=== PATIENT | female | born 1935 | race Two or more races ===

== ENCOUNTER 2021-01-11 14:22 | Emergency (ER) | payer OTHER ==
[~2021-01-11] VITALS: Ht 144.8 cm; Wt 63.5 kg
[2021-01-11 14:23] VITALS: BP 146/66
[2021-01-11] MEDS ORDERED: ACETAMINOPHEN 325 MG TAB PO ONE (16:00)
== END 2021-01-11 16:28 | disposition home or self-care (01) ==
LOC: ER 14:22
DX: S92.515A Nondisplaced fracture of proximal phalanx of left lesser toe(s), initial encounter for closed fracture (principal); S80.12XA Contusion of left lower leg, initial encounter; X50.1XXA Overexertion from prolonged static or awkward postures, initial encounter; Y93.89 Activity, other specified; Y92.89 Other specified places as the place of occurrence of the external cause; Y99.8 Other external cause status
CPT/HCPCS: 73590; 73630

== ENCOUNTER 2021-05-24 11:16 | Inpatient (IN) | payer OTHER, MEDICAID ==
[~2021-05-24] VITALS: Ht 160 cm; Wt 82.7 kg
[2021-05-24] MEDS ORDERED: ASPirin 81 mg TAB PO ONE (13:00)
[2021-05-24] MEDS ORDERED: ACETAMINOPHEN 325 MG TAB PO ONE (13:00)
[2021-05-24] MEDS ORDERED: ONDANSETRON HCL 4 MG/2 ML VIAL IV ONE (13:00)
[2021-05-24] MEDS ORDERED: SODIUM CHLORIDE 0.9% 1,000 ML IVB ONE (13:00)
[2021-05-24] MEDS ORDERED: FAMOTIDINE (10MG/ML) 2ML VL IV ONE (13:00)
[2021-05-24 13:19] LABS: Basophils # (auto) 0 10 ^3/uL (0-0.2); Basophils % (auto) 0.3 % (0.0-2.0); Eosinophils # (auto) 0.1 10 ^3/uL (0-0.8); Eosinophils % (auto) 1.1 % (0.0-7.0); Hematocrit 41.1 % (36.0-46.0); Hemoglobin 13.5 g/dL (12.2-16.2); Lymphocytes # (auto) 2.5 10 ^3/uL (0.4-5.4); Lymphocytes % (auto) 43.4 % (10.0-50.0); Mean Corpuscular Hemoglobin 27.9 pg (28.0-32.0); Mean Corpuscular Hgb Conc. 32.9 g/dL (32.0-36.0); Mean Corpuscular Volume 84.9 fL (80.0-100.0); Monocytes # (auto) 0.4 10 ^3/uL (0-1.3); Monocytes % (auto) 7.2 % (0.0-12.0); Neutrophils # (auto) 2.8 10 ^3/uL (1.6-8.6); Nucleated Red Blood Cells % 0.1 %; Red Blood Cells 4.84 10^6/uL (4.0-5.20); Red Cell Distribution Width 15.5 % (11.8-14.3); White Blood Cell 5.8 10^3/uL (4.4-10.8)
[2021-05-24 14:21] LABS: Urine Amorphous Crystal FEW /hpf (None Seen); Urine Bacteria FEW /hpf (None Seen); Urine Blood 1+ /uL (Negative); Urine Mucus FEW (None Seen); Urine Specific Gravity 1.011 (1.001-1.035); Urine WBC 6 /hpf (0 - 5)
[2021-05-24] MEDS ORDERED: cefTRIAXone 1GM/50ML D5W 50 ML IV ONE (15:15)
[2021-05-24 15:44] LABS: Albumin 3.5 g/dL (3.4-5.0); Magnesium 1.9 mg/dL (1.6-2.6); Potassium 4.1 mmol/L (3.5-5.1)
[2021-05-24 15:48] LABS: BUN/Creatinine Ratio 15.4; Bilirubin, Total 0.3 mg/dL (0.2-1.0); Total Protein 7.3 g/dL (6.4-8.2)
[2021-05-24] MEDS ORDERED: ALBUTEROL SULF 2.5 MG/0.5ML(0.5%) NEB SOLN NEB PRN (22:30)
[2021-05-24] MEDS ORDERED: ACETAMINOPHEN 325 MG TAB PO PRN (22:30)
[2021-05-24] MEDS ORDERED: TEMAZEPAM 15 MG CAP PO PRN (22:30)
[2021-05-24] MEDS ORDERED: DEXTROSE (50%) 50ML SYRG IV PRN (22:30)
[2021-05-24] MEDS ORDERED: NITROGLYCERIN 0.4 MG SL TAB SL PRN (22:30)
[2021-05-24] MEDS ORDERED: MORPHINE SULFATE INJECTION 2 MG/ML SYRG IV PRN (22:30)
[2021-05-24] MEDS ORDERED: ONDANSETRON HCL 4 MG/2 ML VIAL IV PRN (22:30)
[2021-05-24 22:32] VITALS: BP 104/45
[2021-05-25 04:36] LABS: Basophils # (auto) 0 10 ^3/uL (0-0.2); Basophils % (auto) 0.4 % (0.0-2.0); Eosinophils # (auto) 0 10 ^3/uL (0-0.8); Eosinophils % (auto) 0.8 % (0.0-7.0); Hematocrit 38.9 % (36.0-46.0); Hemoglobin 12.7 g/dL (12.2-16.2); Lymphocytes # (auto) 2.3 10 ^3/uL (0.4-5.4); Lymphocytes % (auto) 41.5 % (10.0-50.0); Mean Corpuscular Hemoglobin 28.2 pg (28.0-32.0); Mean Corpuscular Hgb Conc. 32.7 g/dL (32.0-36.0); Mean Corpuscular Volume 86.2 fL (80.0-100.0); Monocytes # (auto) 0.4 10 ^3/uL (0-1.3); Monocytes % (auto) 7.3 % (0.0-12.0); Neutrophils # (auto) 2.8 10 ^3/uL (1.6-8.6); Nucleated Red Blood Cells % 0.1 %; Red Blood Cells 4.51 10^6/uL (4.0-5.20); Red Cell Distribution Width 15.7 % (11.8-14.3); White Blood Cell 5.6 10^3/uL (4.4-10.8)
[2021-05-25 05:02] LABS: Calcium 8.4 mg/dL (8.5-10.1); Potassium 4.1 mmol/L (3.5-5.1)
[2021-05-25 05:05] LABS: BUN/Creatinine Ratio 16.1
[2021-05-25 05:07] LABS: Bilirubin, Total 0.2 mg/dL (0.2-1.0); Total Protein 6.5 g/dL (6.4-8.2)
[2021-05-25] MEDS: InsuLIN REG 1unit/0.01ml Soln (100units/ml) SC SCH ×4 (07:00→21:37)
[2021-05-25] MEDS: ACCU-CHEK COMFORT CURVE STRIP VI SCH ×4 (07:09→21:36)
[2021-05-25] MEDS: LEVOTHYROXINE SODIUM 100 MCG TAB PO SCH (07:20)
[2021-05-25 09:00] VITALS: BP 111/57
[2021-05-25 09:19] LABS: Cholesterol 194 mg/dL (< 200); Triglycerides 217 mg/dL (< 150)
[2021-05-25 09:21] LABS: HDL Cholesterol 38 mg/dL (40-59); LDL Cholesterol 123 mg/dL (< 100)
[2021-05-25 10:22] VITALS: BP 115/65
[2021-05-25] MEDS ORDERED: ASCORBIC ACID 500 MG TAB PO ONE (10:30)
[2021-05-25] MEDS ORDERED: CHOLECALCIFEROL (VITD3) 2,000 UNIT CAP/TAB PO ONE (10:30)
[2021-05-25] MEDS ORDERED: ZINC SULFATE 220mg CAP or TAB PO ONE (10:30)
[2021-05-25] MEDS ORDERED: DexAMETHasone 4 MG TAB PO ONE (10:30)
[2021-05-25] MEDS: cefTRIAXone 1GM/50ML D5W 50 ML IV SCH (10:51)
[2021-05-25] MEDS: ASPirin 81 mg TAB PO SCH (10:51)
[2021-05-25] MEDS: PANTOPRAZOLE 40 MG TAB PO SCH (10:53)
[2021-05-25] MEDS: CARVEDILOL 3.125 MG TAB PO SCH ×2 (10:53→21:36)
[2021-05-25 12:09] VITALS: BP 104/43
[2021-05-25] MEDS ORDERED: REMDESIVIR PER PHARMACY 0 ML IV SCH (13:30)
[2021-05-25] MEDS: AZITHROMYCIN 500MG/ 250ML 250 ML IV SCH (13:45)
[2021-05-25] MEDS ORDERED: REMDESIVIR 200 MG in NS 210ml LOADING DOSE ADULT IV ONE (15:00)
[2021-05-25 16:50] VITALS: BP 97/58
[2021-05-25] MEDS ORDERED: HYDROcodone-ACET 5/325MG TAB PO PRN (17:45)
[2021-05-25] MEDS: ENOXAPARIN SOD 40 MG/0.4 ML SYRINGE SC SCH (21:35)
[2021-05-25] MEDS: ATORVASTATIN 20 MG TAB PO SCH (21:36)
[2021-05-25] MEDS: ASCORBIC ACID 500 MG TAB PO SCH (21:36)
[2021-05-25 22:29] VITALS: BP 123/43
[2021-05-26 05:00] VITALS: BP 100/46
[2021-05-26 06:42] LABS: Potassium 4.3 mmol/L (3.5-5.1)
[2021-05-26] MEDS: InsuLIN REG 1unit/0.01ml Soln (100units/ml) SC SCH ×4 (06:42→21:40)
[2021-05-26] MEDS: LEVOTHYROXINE SODIUM 100 MCG TAB PO SCH (06:42)
[2021-05-26] MEDS: ACCU-CHEK COMFORT CURVE STRIP VI SCH ×4 (06:43→21:27)
[2021-05-26 06:45] LABS: Bilirubin, Total 0.2 mg/dL (0.2-1.0); Total Protein 6.5 g/dL (6.4-8.2)
[2021-05-26 07:02] LABS: Basophils # (auto) 0 10 ^3/uL (0-0.2); Basophils % (auto) 0.6 % (0.0-2.0); Eosinophils # (auto) 0 10 ^3/uL (0-0.8); Hematocrit 39.5 % (36.0-46.0); Hemoglobin 12.8 g/dL (12.2-16.2); Lymphocytes % (auto) 36.6 % (10.0-50.0); Mean Corpuscular Hgb Conc. 32.4 g/dL (32.0-36.0); Mean Corpuscular Volume 86.4 fL (80.0-100.0); Monocytes # (auto) 0.4 10 ^3/uL (0-1.3); Monocytes % (auto) 6.7 % (0.0-12.0); Neutrophils # (auto) 3.1 10 ^3/uL (1.6-8.6); Neutrophils % (auto) 56.1 % (37.0-80.0); Nucleated Red Blood Cells % 0.1 %; Red Blood Cells 4.57 10^6/uL (4.0-5.20); Red Cell Distribution Width 15.7 % (11.8-14.3); White Blood Cell 5.4 10^3/uL (4.4-10.8)
[2021-05-26 09:00] VITALS: BP 108/55
[2021-05-26] MEDS: ENOXAPARIN SOD 40 MG/0.4 ML SYRINGE SC SCH ×3 (09:08→21:46)
[2021-05-26] MEDS: cefTRIAXone 1GM/50ML D5W 50 ML IV SCH (09:08)
[2021-05-26] MEDS: AZITHROMYCIN 500MG/ 250ML 250 ML IV SCH (09:08)
[2021-05-26] MEDS: CARVEDILOL 3.125 MG TAB PO SCH ×2 (09:09→21:41)
[2021-05-26] MEDS: CHOLECALCIFEROL (VITD3) 2,000 UNIT CAP/TAB PO SCH (09:09)
[2021-05-26] MEDS: ASPirin 81 mg TAB PO SCH (09:10)
[2021-05-26] MEDS: DexAMETHasone 4 MG TAB PO SCH (09:10)
[2021-05-26] MEDS: ZINC SULFATE 220mg CAP or TAB PO SCH (09:10)
[2021-05-26] MEDS: PANTOPRAZOLE 40 MG TAB PO SCH (09:10)
[2021-05-26] MEDS: ASCORBIC ACID 500 MG TAB PO SCH ×2 (09:11→21:27)
[2021-05-26 13:00] VITALS: BP 108/51
[2021-05-26] MEDS: REMDESIVIR 100mg 100 MG in SODIUM CHL 0.9% 230 ML IV SCH (15:52)
[2021-05-26 17:00] VITALS: BP 106/51
[2021-05-26] MEDS: ATORVASTATIN 20 MG TAB PO SCH (21:27)
[2021-05-26 22:00] VITALS: BP 99/75
[2021-05-27] VITALS (7 sets, daily range): BP systolic 91–138; BP diastolic 41–69
[2021-05-27] MEDS: InsuLIN REG 1unit/0.01ml Soln (100units/ml) SC SCH ×4 (06:16→22:00)
[2021-05-27] MEDS: ACCU-CHEK COMFORT CURVE STRIP VI SCH ×4 (06:17→22:31)
[2021-05-27] MEDS: LEVOTHYROXINE SODIUM 100 MCG TAB PO SCH (06:27)
[2021-05-27 06:52] LABS: Potassium 4.3 mmol/L (3.5-5.1)
[2021-05-27 06:57] LABS: BUN/Creatinine Ratio 18.1; Bilirubin, Total 0.2 mg/dL (0.2-1.0); Total Protein 6.5 g/dL (6.4-8.2)
[2021-05-27] MEDS: ASPirin 81 mg TAB PO SCH (08:35)
[2021-05-27] MEDS: cefTRIAXone 1GM/50ML D5W 50 ML IV SCH (08:35)
[2021-05-27] MEDS: AZITHROMYCIN 500MG/ 250ML 250 ML IV SCH (08:35)
[2021-05-27] MEDS: ZINC SULFATE 220mg CAP or TAB PO SCH (08:36)
[2021-05-27] MEDS: CARVEDILOL 3.125 MG TAB PO SCH (08:38)
[2021-05-27] MEDS: DexAMETHasone 4 MG TAB PO SCH (08:44)
[2021-05-27] MEDS: ASCORBIC ACID 500 MG TAB PO SCH ×2 (08:46→22:30)
[2021-05-27] MEDS: PANTOPRAZOLE 40 MG TAB PO SCH (08:46)
[2021-05-27] MEDS: CHOLECALCIFEROL (VITD3) 2,000 UNIT CAP/TAB PO SCH (08:46)
[2021-05-27] MEDS: ENOXAPARIN SOD 40 MG/0.4 ML SYRINGE SC SCH ×2 (08:47→22:31)
[2021-05-27] MEDS: REMDESIVIR 100mg 100 MG in SODIUM CHL 0.9% 230 ML IV SCH (15:10)
[2021-05-27] MEDS: ATORVASTATIN 20 MG TAB PO SCH (22:30)
[2021-05-28 05:00] VITALS: BP 126/58
[2021-05-28] MEDS: LEVOTHYROXINE SODIUM 100 MCG TAB PO SCH (06:12)
[2021-05-28] MEDS: InsuLIN REG 1unit/0.01ml Soln (100units/ml) SC SCH ×4 (06:12→21:44)
[2021-05-28] MEDS: ACCU-CHEK COMFORT CURVE STRIP VI SCH ×4 (06:12→21:44)
[2021-05-28 07:41] LABS: Calcium 8.2 mg/dL (8.5-10.1); Potassium 4.2 mmol/L (3.5-5.1)
[2021-05-28 07:44] LABS: BUN/Creatinine Ratio 22.3; Bilirubin, Total 0.2 mg/dL (0.2-1.0); Total Protein 6.5 g/dL (6.4-8.2)
[2021-05-28 07:47] VITALS: BP 108/48
[2021-05-28 08:09] LABS: Basophils # (auto) 0 10 ^3/uL (0-0.2); Basophils % (auto) 0.1 % (0.0-2.0); Eosinophils # (auto) 0 10 ^3/uL (0-0.8); Hemoglobin 12.4 g/dL (12.2-16.2); Lymphocytes # (auto) 1.6 10 ^3/uL (0.4-5.4); Lymphocytes % (auto) 25.8 % (10.0-50.0); Mean Corpuscular Hemoglobin 28.5 pg (28.0-32.0); Mean Corpuscular Hgb Conc. 33.3 g/dL (32.0-36.0); Mean Corpuscular Volume 85.4 fL (80.0-100.0); Monocytes # (auto) 0.6 10 ^3/uL (0-1.3); Monocytes % (auto) 9.1 % (0.0-12.0); Nucleated Red Blood Cells % 0.1 %; Red Blood Cells 4.34 10^6/uL (4.0-5.20); Red Cell Distribution Width 15.9 % (11.8-14.3); White Blood Cell 6.1 10^3/uL (4.4-10.8)
[2021-05-28 09:00] VITALS: BP 124/68
[2021-05-28] MEDS: ASPirin 81 mg TAB PO SCH (09:28)
[2021-05-28] MEDS: cefTRIAXone 1GM/50ML D5W 50 ML IV SCH (09:28)
[2021-05-28] MEDS: DexAMETHasone 4 MG TAB PO SCH (09:29)
[2021-05-28] MEDS: ASCORBIC ACID 500 MG TAB PO SCH ×2 (09:29→21:44)
[2021-05-28] MEDS: ZINC SULFATE 220mg CAP or TAB PO SCH (09:29)
[2021-05-28] MEDS: PANTOPRAZOLE 40 MG TAB PO SCH (09:29)
[2021-05-28] MEDS: CHOLECALCIFEROL (VITD3) 2,000 UNIT CAP/TAB PO SCH (09:29)
[2021-05-28] MEDS: ENOXAPARIN SOD 40 MG/0.4 ML SYRINGE SC SCH ×2 (09:30→21:44)
[2021-05-28] MEDS: AZITHROMYCIN 500MG/ 250ML 250 ML IV SCH (10:00)
[2021-05-28 13:00] VITALS: BP 108/48
[2021-05-28] MEDS: REMDESIVIR 100mg 100 MG in SODIUM CHL 0.9% 230 ML IV SCH (14:32)
[2021-05-28] MEDS ORDERED: LACTULOSE 20Gm/30ML SOLN PO ONE (16:30)
[2021-05-28 17:15] VITALS: BP 132/63
[2021-05-28] MEDS: ATORVASTATIN 20 MG TAB PO SCH (21:44)
[2021-05-28 22:00] VITALS: BP 114/79
[2021-05-29 05:13] VITALS: BP 107/52
[2021-05-29] MEDS: ACCU-CHEK COMFORT CURVE STRIP VI SCH ×4 (06:03→21:17)
[2021-05-29] MEDS: LEVOTHYROXINE SODIUM 100 MCG TAB PO SCH (06:03)
[2021-05-29] MEDS: InsuLIN REG 1unit/0.01ml Soln (100units/ml) SC SCH ×4 (06:15→21:17)
[2021-05-29 07:05] LABS: Albumin 3.1 g/dL (3.4-5.0); Potassium 4.1 mmol/L (3.5-5.1)
[2021-05-29 07:09] LABS: BUN/Creatinine Ratio 21.2; Bilirubin, Total 0.2 mg/dL (0.2-1.0); Calcium 8.3 mg/dL (8.5-10.1); Total Protein 6.8 g/dL (6.4-8.2)
[2021-05-29 09:00] VITALS: BP 126/56
[2021-05-29] MEDS: cefTRIAXone 1GM/50ML D5W 50 ML IV SCH (09:35)
[2021-05-29] MEDS: ASPirin 81 mg TAB PO SCH (09:35)
[2021-05-29] MEDS: AZITHROMYCIN 500MG/ 250ML 250 ML IV SCH (09:35)
[2021-05-29] MEDS: DexAMETHasone 4 MG TAB PO SCH (09:36)
[2021-05-29] MEDS: ASCORBIC ACID 500 MG TAB PO SCH ×2 (09:36→21:16)
[2021-05-29] MEDS: CHOLECALCIFEROL (VITD3) 2,000 UNIT CAP/TAB PO SCH (09:36)
[2021-05-29] MEDS: ZINC SULFATE 220mg CAP or TAB PO SCH (09:36)
[2021-05-29] MEDS: PANTOPRAZOLE 40 MG TAB PO SCH (09:36)
[2021-05-29] MEDS: ENOXAPARIN SOD 40 MG/0.4 ML SYRINGE SC SCH ×2 (09:37→21:16)
[2021-05-29 14:28] VITALS: BP 110/61
[2021-05-29] MEDS: REMDESIVIR 100mg 100 MG in SODIUM CHL 0.9% 230 ML IV SCH (15:03)
[2021-05-29] MEDS ORDERED: LACTULOSE 20Gm/30ML SOLN PO PRN (16:30)
[2021-05-29 17:00] VITALS: BP 106/44
[2021-05-29] MEDS: ATORVASTATIN 20 MG TAB PO SCH (21:15)
[2021-05-29 22:00] VITALS: BP 123/71
[2021-05-30 05:00] VITALS: BP 104/55
[2021-05-30] MEDS: LEVOTHYROXINE SODIUM 100 MCG TAB PO SCH (06:39)
[2021-05-30] MEDS: InsuLIN REG 1unit/0.01ml Soln (100units/ml) SC SCH (06:40)
[2021-05-30] MEDS: ACCU-CHEK COMFORT CURVE STRIP VI SCH (06:40)
[2021-05-30 09:00] VITALS: BP 121/68
[2021-05-30] MEDS: cefTRIAXone 1GM/50ML D5W 50 ML IV SCH (09:00)
[2021-05-30] MEDS: ZINC SULFATE 220mg CAP or TAB PO SCH (10:30)
[2021-05-30] MEDS: ASPirin 81 mg TAB PO SCH (10:31)
[2021-05-30] MEDS: DexAMETHasone 4 MG TAB PO SCH (10:31)
[2021-05-30] MEDS: AZITHROMYCIN 500MG/ 250ML 250 ML IV SCH (10:31)
[2021-05-30] MEDS: ASCORBIC ACID 500 MG TAB PO SCH (10:31)
[2021-05-30] MEDS: CHOLECALCIFEROL (VITD3) 2,000 UNIT CAP/TAB PO SCH (10:31)
[2021-05-30] MEDS: ENOXAPARIN SOD 40 MG/0.4 ML SYRINGE SC SCH (10:31)
[2021-05-30 10:46] VITALS: BP 121/68
[2021-05-30 14:10] VITALS: BP 119/62
== END 2021-05-30 13:45 | disposition home or self-care (01) | DRG 177 ==
LOC: EDBD 11:16 → ER 11:16 → TELE 22:16 → TELE-EAST 05-25 08:40
PROVIDERS: ADMIT Nurse Practitioner; ATTEND Internal Medicine Geriatric Medicine
PROC: XW033E5 Introduction of Remdesivir Anti-infective into Peripheral Vein, Percutaneous Approach, New Technology Group 5 (ICD-10-PCS; principal; 2021-05-25)
PROC: 05HD33Z Insertion of Infusion Device into Right Cephalic Vein, Percutaneous Approach (ICD-10-PCS; 2021-05-25)
PROC: B54MZZA Ultrasonography of Right Upper Extremity Veins, Guidance (ICD-10-PCS; 2021-05-25)
PROC: 5A09357 Assistance with Respiratory Ventilation, Less than 24 Consecutive Hours, Continuous Positive Airway Pressure (ICD-10-PCS; 2021-05-27)
PROC: 5A09357 Assistance with Respiratory Ventilation, Less than 24 Consecutive Hours, Continuous Positive Airway Pressure (ICD-10-PCS; 2021-05-28)
DX: U07.1 COVID-19 (principal); J96.01 Acute respiratory failure with hypoxia; N39.0 Urinary tract infection, site not specified; J98.11 Atelectasis; I25.110 Atherosclerotic heart disease of native coronary artery with unstable angina pectoris; E11.9 Type 2 diabetes mellitus without complications; E03.9 Hypothyroidism, unspecified; E66.9 Obesity, unspecified; Z20.822 Contact with and (suspected) exposure to COVID-19; E78.5 Hyperlipidemia, unspecified; G47.33 Obstructive sleep apnea (adult) (pediatric); I11.0 Hypertensive heart disease with heart failure; I50.9 Heart failure, unspecified; I35.0 Nonrheumatic aortic (valve) stenosis; Z68.32 Body mass index [BMI] 32.0-32.9, adult; Z79.84 Long term (current) use of oral hypoglycemic drugs; Z95.0 Presence of cardiac pacemaker; Z95.1 Presence of aortocoronary bypass graft; Z88.5 Allergy status to narcotic agent
CPT/HCPCS: 36415; 36600; 71045; 80053; 80061; 81001; 82728; 82805; 82962; 83036; 83605; 83735; 83880; 84443; 84484; 85025; 85379; 87086; 87426; 93005; 93306; 94660; 94760; 96365; 96366; 96375; G0378; J0696; J2405; J3490

== ENCOUNTER 2022-07-03 03:32 | Inpatient (IN) | payer OTHER, MEDICAID ==
[~2022-07-03] VITALS: Ht 144.8 cm; Wt 61.6 kg
[2022-07-03 04:15] LABS: Basophils # (auto) 0.1 10 ^3/uL (0-0.2); Basophils % (auto) 1.1 % (0.0-2.0); Eosinophils # (auto) 1.2 10 ^3/uL (0-0.8); Eosinophils % (auto) 14.9 % (0.0-7.0); Hemoglobin 11.8 g/dL (12.2-16.2); Lymphocytes # (auto) 2.8 10 ^3/uL (0.4-5.4); Lymphocytes % (auto) 33.9 % (10.0-50.0); Mean Corpuscular Hemoglobin 27.7 pg (28.0-32.0); Mean Corpuscular Hgb Conc. 32.8 g/dL (32.0-36.0); Mean Corpuscular Volume 84.4 fL (80.0-100.0); Monocytes # (auto) 0.6 10 ^3/uL (0-1.3); Monocytes % (auto) 7.5 % (0.0-12.0); Neutrophils # (auto) 3.5 10 ^3/uL (1.6-8.6); Neutrophils % (auto) 42.6 % (37.0-80.0); Red Blood Cells 4.26 10^6/uL (4.0-5.20); Red Cell Distribution Width 14.4 % (11.8-14.3); White Blood Cell 8.3 10^3/uL (4.4-10.8)
[2022-07-03 04:31] LABS: Albumin 3.3 g/dL (3.4-5.0); Calcium 8.4 mg/dL (8.5-10.1); Potassium 4.4 mmol/L (3.5-5.1)
[2022-07-03 04:34] LABS: BUN/Creatinine Ratio 29.7; Bilirubin, Total 0.3 mg/dL (0.2-1.0); Total Protein 6.3 g/dL (6.4-8.2)
[2022-07-03] MEDS ORDERED: ENOXAPARIN SOD 60 MG/0.6 ML SYRINGE SC ONE (06:45)
[2022-07-03 07:11] LABS: Urine Bacteria FEW /hpf (None Seen); Urine Blood Negative /uL (Negative); Urine Mucus FEW (None Seen); Urine Specific Gravity 1.014 (1.001-1.035); Urine WBC 17 /hpf (0 - 5)
[2022-07-03] MEDS ORDERED: MORPHINE SULFATE INJ 2 MG/ml SYRG IV PRN (09:45)
[2022-07-03] MEDS ORDERED: NITROGLYCERIN 0.4 MG SL TAB SL PRN (09:45)
[2022-07-03] MEDS ORDERED: CARV3.1240 PO (09:49)
[2022-07-03] MEDS ORDERED: LISI-716 PO (09:49)
[2022-07-03] MEDS ORDERED: ATOR40TA52 PO (09:49)
[2022-07-03] MEDS ORDERED: ASPI1CHW5 PO (09:49)
[2022-07-03] MEDS ORDERED: LEVO100T8 PO (09:49)
[2022-07-03] MEDS: CARVEDILOL 3.125 MG TAB PO SCH ×2 (10:00→21:57)
[2022-07-03] MEDS ORDERED: PATIENTS OWN MEDICATION (Aspirin (Chewable Aspirin) 1 TAB) PO SCH (10:00)
[2022-07-03] MEDS: LISINOPRIL 10 MG TAB PO SCH (10:47)
[2022-07-03] MEDS: ASPirin 81 mg TAB PO SCH (10:47)
[2022-07-03] MEDS: LEVOTHYROXINE SODIUM 100 MCG TAB PO SCH (10:48)
[2022-07-03 11:32] LABS: Triglycerides 122 mg/dL (< 150)
[2022-07-03 11:36] LABS: Cholesterol 99 mg/dL (< 200); HDL Cholesterol 39 mg/dL (40-59); LDL Cholesterol 55 mg/dL (< 100)
[2022-07-03] MEDS: ATORVASTATIN 20 MG TAB PO SCH (21:55)
[2022-07-03 22:00] VITALS: BP 106/56
[2022-07-04 05:00] VITALS: BP 104/48
[2022-07-04 06:47] LABS: Basophils # (auto) 0.1 10 ^3/uL (0-0.2); Basophils % (auto) 0.9 % (0.0-2.0); Eosinophils # (auto) 0.8 10 ^3/uL (0-0.8); Eosinophils % (auto) 11.9 % (0.0-7.0); Hemoglobin 11.4 g/dL (12.2-16.2); Lymphocytes # (auto) 2.5 10 ^3/uL (0.4-5.4); Lymphocytes % (auto) 38.1 % (10.0-50.0); Mean Corpuscular Hemoglobin 27.8 pg (28.0-32.0); Mean Corpuscular Hgb Conc. 32.6 g/dL (32.0-36.0); Mean Corpuscular Volume 85.2 fL (80.0-100.0); Monocytes # (auto) 0.6 10 ^3/uL (0-1.3); Monocytes % (auto) 8.6 % (0.0-12.0); Neutrophils # (auto) 2.7 10 ^3/uL (1.6-8.6); Neutrophils % (auto) 40.5 % (37.0-80.0); Nucleated Red Blood Cells % 0.1 %; Red Cell Distribution Width 14.6 % (11.8-14.3); White Blood Cell 6.6 10^3/uL (4.4-10.8)
[2022-07-04 07:04] LABS: Calcium 8.6 mg/dL (8.5-10.1); Potassium 4.3 mmol/L (3.5-5.1)
[2022-07-04 07:10] LABS: Albumin 3.2 g/dL (3.4-5.0); BUN/Creatinine Ratio 26.9; Bilirubin, Total 0.5 mg/dL (0.2-1.0); Total Protein 5.6 g/dL (6.4-8.2)
[2022-07-04 09:00] VITALS: BP 119/66
[2022-07-04] MEDS ORDERED: PANTOPRAZOLE 40 MG/10 ML VIAL INJ IV SCH (10:00)
[2022-07-04] MEDS: ENOXAPARIN SOD 40 MG/0.4 ML SYRINGE SC SCH (10:58)
[2022-07-04] MEDS: ASPirin 81 mg TAB PO SCH (10:58)
[2022-07-04] MEDS: LEVOTHYROXINE SODIUM 100 MCG TAB PO SCH (10:58)
[2022-07-04] MEDS: CARVEDILOL 3.125 MG TAB PO SCH ×2 (11:00→22:28)
[2022-07-04] MEDS: LISINOPRIL 10 MG TAB PO SCH (11:01)
[2022-07-04 13:00] VITALS: BP 109/50
[2022-07-04 16:31] VITALS: BP 107/61
[2022-07-04 22:00] VITALS: BP 109/54
[2022-07-04] MEDS: ATORVASTATIN 20 MG TAB PO SCH (22:28)
[2022-07-05 04:55] VITALS: BP 107/55
[2022-07-05] MEDS ORDERED: LEVOTHYROXINE SODIUM 100 MCG TAB PO SCH (07:00)
[2022-07-05 09:00] VITALS: BP 104/55
[2022-07-05] MEDS: CARVEDILOL 3.125 MG TAB PO SCH (10:22)
[2022-07-05] MEDS: ASPirin 81 mg TAB PO SCH (10:23)
[2022-07-05] MEDS: LISINOPRIL 10 MG TAB PO SCH (10:23)
[2022-07-05] MEDS: ENOXAPARIN SOD 40 MG/0.4 ML SYRINGE SC SCH (10:25)
[2022-07-05 10:33] VITALS: BP 104/55
== END 2022-07-05 11:00 | disposition home health service (06) | DRG 313 ==
LOC: ER 03:32 → TELE 09:47 → TELE-WESTW 21:00 → UNDODISIN 07-04 19:05
PROVIDERS: ADMIT Registered Nurse; ATTEND Internal Medicine
DX: R07.89 Other chest pain (principal); N39.0 Urinary tract infection, site not specified; I25.10 Atherosclerotic heart disease of native coronary artery without angina pectoris; E78.5 Hyperlipidemia, unspecified; E03.9 Hypothyroidism, unspecified; I50.9 Heart failure, unspecified; I11.0 Hypertensive heart disease with heart failure; Z20.822 Contact with and (suspected) exposure to COVID-19; E11.65 Type 2 diabetes mellitus with hyperglycemia; E66.01 Morbid (severe) obesity due to excess calories; I34.2 Nonrheumatic mitral (valve) stenosis; Z95.1 Presence of aortocoronary bypass graft; Z95.0 Presence of cardiac pacemaker; Z88.6 Allergy status to analgesic agent
CPT/HCPCS: 36415; 71045; 71275; 80053; 80061; 81001; 83036; 83880; 84443; 84484; 85025; 87040; 87086; 87426; 93005; 93306; 96372; C9113; G0378